=== PATIENT | male | born 1960 | race Caucasian/White ===

== ENCOUNTER 2017-12-07 10:19 | Inpatient (IN) | payer BC ==
[2017-12-07] MEDS: PERCOCET 5MG/325MG TAB PO (11:56)
[2017-12-07 13:29] LABS: HEMOGLOBIN 13.3 g/dl (13.5-17.5); MEAN CORPUSCULAR HGB CONC 35.9 g/dl (32.0-36.5); MEAN CORPUSCULAR VOLUME 86.2 fl (80.0-96.0); PLATELET COUNT, AUTOMATED 166 10^3/uL (150-450); RED BLOOD COUNT 4.29 10^6/uL (4.30-6.10); RED CELL DISTRIBUTION WIDTH 13.2 % (11.5-14.5); WHITE BLOOD COUNT 8.1 10^3/uL (4.0-10.0)
[2017-12-07 13:42] LABS: PROTHROMBIN TIME 13.3 SECONDS (12.4-14.5)
[2017-12-07 13:43] LABS: PARTIAL THROMBOPLASTIN TIME 27.1 SECONDS (26.8-37.9)
[2017-12-07 13:56] LABS: ANION GAP 6 MEQ/L (8-16); BLOOD UREA NITROGEN 11 MG/DL (7-18); CALCIUM LEVEL 9.1 MG/DL (8.5-10.1); CARBON DIOXIDE LEVEL 30 MEQ/L (21-32); CHLORIDE LEVEL 97 MEQ/L (98-107); CREATININE FOR GFR 0.59 MG/DL (0.70-1.30); GLOMERULAR FILTRATION RATE > 60.0 (>56); GLUCOSE, FASTING 104 MG/DL (70-100); POTASSIUM SERUM 4.3 MEQ/L (3.5-5.1); SODIUM LEVEL 133 MEQ/L (136-145)
[2017-12-07] MEDS: MORPHINE 4 MG/ML 1ML VIAL/SYRINGE (J2270) IV ×3 (15:00→21:21)
[2017-12-07] MEDS ORDERED: ACETAMINOPHEN TAB 650MG DOSE (2X325MG) PO (15:00)
[2017-12-07] MEDS: AZITHROMYCIN INJ 500 MG, VIAL MATE ADAPTER 1 EACH in D5W 250 ML IV (18:35)
[2017-12-07] MEDS ORDERED: NALOXONE INJ 0.4 MG/1 ML VIAL (J2310) IV (19:15)
[2017-12-07] MEDS ORDERED: diphenhydrAMINE INJ 50MG/ML VIAL (J1200) IV (19:15)
[2017-12-07] MEDS ORDERED: NALBUPHINE HCL 10 MG/ML AMP (J2300) IV (19:15)
[2017-12-07] MEDS ORDERED: EPIDURAL/PCA KEYS XX (19:15)
[2017-12-07] MEDS: ONDANSETRON 4MG/2ML VIAL (J2405) IV (19:59)
[2017-12-07] MEDS: cefTRIAXone SOD 2 GM in D5W MINI-BAG PLUS 50 ML IV (20:32)
[2017-12-07] MEDS: DOCUSATE SODIUM 100 MG CAP PO (20:32)
[2017-12-07] MEDS: NS 1,000 ML IV (20:33)
[2017-12-07] MEDS: MORPHINE 1MG/ML IN 0.9% NACL 100ML IV BAG IV (21:35)
[2017-12-07] MEDS: IPRATROPIUM 0.5MG/ALBUTEROL 2.5MG INH SOL UD 3ML (DUONEB)(J7620) NEB (21:40)
[2017-12-07] MEDS: NICOTINE 21MG/24HR 1 EA TRANSDERMAL TD (21:55)
[2017-12-08] MEDS: IPRATROPIUM 0.5MG/ALBUTEROL 2.5MG INH SOL UD 3ML (DUONEB)(J7620) NEB ×2 (03:06→23:34)
[2017-12-08] MEDS: ONDANSETRON 4MG/2ML VIAL (J2405) IV ×3 (03:51→22:00)
[2017-12-08 04:29] LABS: BASO % 0.2 % (0.0-1.0); EOS # 0.1 10^3/uL (0.0-0.50); EOS % 0.8 % (0.0-3.0); HEMATOCRIT 38.1 % (42.0-52.0); HEMOGLOBIN 13.4 g/dl (13.5-17.5); IMMATURE GRANULOCYTE % 0.2 % (0-3.0); LYMPH # 0.6 10^3/uL (1.5-4.5); LYMPH % 6.2 % (24.0-44.0); MEAN CORPUSCULAR HEMOGLOBIN 30.8 pg (27.0-33.0); MEAN CORPUSCULAR HGB CONC 35.2 g/dl (32.0-36.5); MEAN CORPUSCULAR VOLUME 87.6 fl (80.0-96.0); MONO # 0.9 10^3/uL (0.0-0.8); MONO % 9.1 % (0.0-5.0); NEUTROPHILS # 8.6 10^3/uL (1.8-7.7); NEUTROPHILS % 83.5 % (36.0-66.0); PLATELET COUNT, AUTOMATED 191 10^3/uL (150-450); RED BLOOD COUNT 4.35 10^6/uL (4.30-6.10); RED CELL DISTRIBUTION WIDTH 13.4 % (11.5-14.5); WHITE BLOOD COUNT 10.2 10^3/uL (4.0-10.0)
[2017-12-08 05:00] LABS: ANION GAP 7 MEQ/L (8-16); BLOOD UREA NITROGEN 13 MG/DL (7-18); CALCIUM LEVEL 8.5 MG/DL (8.5-10.1); CARBON DIOXIDE LEVEL 30 MEQ/L (21-32); CHLORIDE LEVEL 96 MEQ/L (98-107); CREATININE FOR GFR 0.57 MG/DL (0.70-1.30); GLOMERULAR FILTRATION RATE > 60.0 (>56); GLUCOSE, FASTING 153 MG/DL (70-100); POTASSIUM SERUM 3.6 MEQ/L (3.5-5.1); SODIUM LEVEL 133 MEQ/L (136-145)
[2017-12-08] MEDS: PIPERACILLIN/TAZOBACTAM SOD 3.375 GM in D5W MINI-BAG PLUS 50 ML IV ×3 (06:23→18:30)
[2017-12-08 06:32] LABS: ABG BASE EXCESS 0.3 (-2.0-2.0); ABG HCO3 26.2 MEQ/L (22.0-26.0); ABG O2 SATURATION 92.1 % (95.0-99.0); ABG PARTIAL PRESSURE CO2 47.2 mmHg (35.0-45.0); ABG PARTIAL PRESSURE O2 66.1 mmHg (75.0-100.0); ABG STANDARD HCO3 24.6 MEQ/L (22.0-26.0); ABG TOTAL CO2 27.7 MEQ/L (22.0-29.0); ABG pH (ARTERIAL) 7.363 UNITS (7.350-7.450)
[2017-12-08] MEDS ORDERED: MORPHINE 4 MG/ML 1ML VIAL/SYRINGE (J2270) IV (08:15)
[2017-12-08] MEDS: ASPIRIN 81 MG ENTERIC TAB PO (09:33)
[2017-12-08] MEDS: DOCUSATE SODIUM 100 MG CAP PO ×2 (09:33→21:03)
[2017-12-08] MEDS: hydroCHLOROthiazide 12.5 MG CAPSULE PO (09:34)
[2017-12-08] MEDS: ATORVASTATIN 20 MG TAB PO (09:34)
[2017-12-08] MEDS: LISINOPRIL 40 MG TAB PO (09:34)
[2017-12-08] MEDS: METOPROLOL SUCC (TopROL XL) 100MG *XL* TAB PO (09:34)
[2017-12-08] MEDS: CLOPIDOGREL 75 MG TAB PO (09:34)
[2017-12-08] MEDS: OMEPRAZOLE 20 MG CAP PO (09:34)
[2017-12-08] MEDS: NICOTINE 21MG/24HR 1 EA TRANSDERMAL TD (09:35)
[2017-12-08] MEDS ORDERED: SODIUM CHLORIDE 0.9% 1000 ML IV (11:45)
[2017-12-08] MEDS ORDERED: NALOXONE INJ 0.4 MG/1 ML VIAL (J2310) IV (12:00)
[2017-12-08] MEDS ORDERED: EPIDURAL/PCA KEYS XX (12:00)
[2017-12-08] MEDS ORDERED: diphenhydrAMINE INJ 50MG/ML VIAL (J1200) IV (12:00)
[2017-12-08] MEDS ORDERED: NALBUPHINE HCL 10 MG/ML AMP (J2300) IV (12:00)
[2017-12-08] MEDS: NS 1,000 ML IV (12:15)
[2017-12-08] MEDS: CALCIUM CARBONATE 500 MG CHEW U/D PO (21:03)
[2017-12-08] MEDS: MORPHINE 1MG/ML IN 0.9% NACL 100ML IV BAG IV (23:09)
[2017-12-09] MEDS: PIPERACILLIN/TAZOBACTAM SOD 3.375 GM in D5W MINI-BAG PLUS 50 ML IV ×4 (01:23→18:42)
[2017-12-09 05:42] LABS: BASO % 0.3 % (0.0-1.0); EOS # 0.2 10^3/uL (0.0-0.50); EOS % 3.5 % (0.0-3.0); HEMATOCRIT 34.7 % (42.0-52.0); HEMOGLOBIN 11.9 g/dl (13.5-17.5); IMMATURE GRANULOCYTE % 0.5 % (0-3.0); LYMPH # 1.3 10^3/uL (1.5-4.5); LYMPH % 21.1 % (24.0-44.0); MEAN CORPUSCULAR HEMOGLOBIN 30.5 pg (27.0-33.0); MEAN CORPUSCULAR HGB CONC 34.3 g/dl (32.0-36.5); MONO # 0.7 10^3/uL (0.0-0.8); NEUTROPHILS % 63.6 % (36.0-66.0); PLATELET COUNT, AUTOMATED 165 10^3/uL (150-450); RED CELL DISTRIBUTION WIDTH 13.4 % (11.5-14.5); WHITE BLOOD COUNT 6.3 10^3/uL (4.0-10.0)
[2017-12-09 06:04] LABS: ANION GAP 4 MEQ/L (8-16); BLOOD UREA NITROGEN 16 MG/DL (7-18); CALCIUM LEVEL 9.1 MG/DL (8.5-10.1); CARBON DIOXIDE LEVEL 36 MEQ/L (21-32); CHLORIDE LEVEL 96 MEQ/L (98-107); CREATININE FOR GFR 0.53 MG/DL (0.70-1.30); GLOMERULAR FILTRATION RATE > 60.0 (>56); GLUCOSE, FASTING 127 MG/DL (70-100); POTASSIUM SERUM 3.7 MEQ/L (3.5-5.1); SODIUM LEVEL 136 MEQ/L (136-145)
[2017-12-09] MEDS: ONDANSETRON 4MG/2ML VIAL (J2405) IV ×2 (06:51→17:29)
[2017-12-09] MEDS: ASPIRIN 81 MG ENTERIC TAB PO (08:42)
[2017-12-09] MEDS: ATORVASTATIN 20 MG TAB PO (08:42)
[2017-12-09] MEDS: LISINOPRIL 40 MG TAB PO (08:43)
[2017-12-09] MEDS: hydroCHLOROthiazide 12.5 MG CAPSULE PO (08:43)
[2017-12-09] MEDS: OMEPRAZOLE 20 MG CAP PO (08:44)
[2017-12-09] MEDS: CLOPIDOGREL 75 MG TAB PO (08:44)
[2017-12-09] MEDS: DOCUSATE SODIUM 100 MG CAP PO ×2 (08:44→20:05)
[2017-12-09] MEDS: METOPROLOL SUCC (TopROL XL) 100MG *XL* TAB PO (08:44)
[2017-12-09] MEDS: NICOTINE 21MG/24HR 1 EA TRANSDERMAL TD (08:45)
[2017-12-09] MEDS ORDERED: FENTANYL REMOVAL DOCUMENTATION MISC XX (11:00)
[2017-12-09] MEDS ORDERED: LEVALBUTEROL 1.25 MG/0.5 ML CONCENTRATE NEB NEB (11:00)
[2017-12-09] MEDS: MOM 30ML SUSPENSION UDC PO (11:56)
[2017-12-09] MEDS: KETOROLAC 30 MG/ML VIAL (J1885) IV ×3 (11:56→23:25)
[2017-12-09] MEDS: BISACODYL 10 MG SUPP PR (11:57)
[2017-12-09] MEDS: SENOKOT S TAB PO (11:57)
[2017-12-09] MEDS: fentaNYL 25 MCG/HR PATCH TOP (14:05)
[2017-12-09] MEDS: LEVALBUTEROL 1.25 MG/0.5 ML CONCENTRATE NEB NEB ×2 (14:14→20:53)
[2017-12-09] MEDS: FLEET OIL RETENTION ENEMA PR (17:06)
[2017-12-09] MEDS: MIRALAX *UNIT DOSE* 17GM PACKET PO (18:41)
[2017-12-10] MEDS: PIPERACILLIN/TAZOBACTAM SOD 3.375 GM in D5W MINI-BAG PLUS 50 ML IV ×4 (01:09→18:33)
[2017-12-10] MEDS: LEVALBUTEROL 1.25 MG/0.5 ML CONCENTRATE NEB NEB ×4 (02:07→20:35)
[2017-12-10] MEDS: KETOROLAC 30 MG/ML VIAL (J1885) IV ×4 (05:01→22:48)
[2017-12-10 05:53] LABS: HEMATOCRIT 31.3 % (42.0-52.0); HEMOGLOBIN 10.9 g/dl (13.5-17.5); MEAN CORPUSCULAR VOLUME 89.2 fl (80.0-96.0); RED BLOOD COUNT 3.51 10^6/uL (4.30-6.10); WHITE BLOOD COUNT 5.1 10^3/uL (4.0-10.0)
[2017-12-10 05:54] LABS: BASO % 0.2 % (0.0-1.0); EOS # 0.2 10^3/uL (0.0-0.50); EOS % 4.1 % (0.0-3.0); IMMATURE GRANULOCYTE % 0.4 % (0-3.0); LYMPH # 1.4 10^3/uL (1.5-4.5); LYMPH % 26.6 % (24.0-44.0); MEAN CORPUSCULAR HEMOGLOBIN 31.1 pg (27.0-33.0); MEAN CORPUSCULAR HGB CONC 34.8 g/dl (32.0-36.5); MONO # 0.5 10^3/uL (0.0-0.8); MONO % 9.8 % (0.0-5.0); NEUTROPHILS % 58.9 % (36.0-66.0); PLATELET COUNT, AUTOMATED 168 10^3/uL (150-450); RED CELL DISTRIBUTION WIDTH 13.4 % (11.5-14.5)
[2017-12-10 06:09] LABS: ANION GAP 4 MEQ/L (8-16); BLOOD UREA NITROGEN 20 MG/DL (7-18); CALCIUM LEVEL 8.9 MG/DL (8.5-10.1); CARBON DIOXIDE LEVEL 36 MEQ/L (21-32); CHLORIDE LEVEL 97 MEQ/L (98-107); CREATININE FOR GFR 0.51 MG/DL (0.70-1.30); GLOMERULAR FILTRATION RATE > 60.0 (>56); GLUCOSE, FASTING 118 MG/DL (70-100); POTASSIUM SERUM 3.4 MEQ/L (3.5-5.1); SODIUM LEVEL 137 MEQ/L (136-145)
[2017-12-10] MEDS: NICOTINE 21MG/24HR 1 EA TRANSDERMAL TD (08:43)
[2017-12-10] MEDS: DOCUSATE SODIUM 100 MG CAP PO ×2 (08:43→21:06)
[2017-12-10] MEDS: MOM 30ML SUSPENSION UDC PO (08:43)
[2017-12-10] MEDS: ATORVASTATIN 20 MG TAB PO (08:43)
[2017-12-10] MEDS: SENOKOT S TAB PO ×3 (08:44→21:05)
[2017-12-10] MEDS: CLOPIDOGREL 75 MG TAB PO (08:44)
[2017-12-10] MEDS: METOPROLOL SUCC (TopROL XL) 100MG *XL* TAB PO (08:44)
[2017-12-10] MEDS: LISINOPRIL 40 MG TAB PO (08:45)
[2017-12-10] MEDS: OMEPRAZOLE 20 MG CAP PO (08:45)
[2017-12-10] MEDS: hydroCHLOROthiazide 12.5 MG CAPSULE PO (08:45)
[2017-12-10] MEDS: ASPIRIN 81 MG ENTERIC TAB PO (08:46)
[2017-12-10] MEDS: PERCOCET 5MG/325MG TAB PO ×3 (08:46→21:06)
[2017-12-10] MEDS: MIRALAX *UNIT DOSE* 17GM PACKET PO ×2 (10:58→21:07)
[2017-12-10] MEDS: METHYLNALTREXONE BROMIDE 12 MG/0.6 ML VIAL (RELISTOR) SC (11:48)
[2017-12-10] MEDS: MAGNESIUM CITRATE 300 ML BTL PO (13:20)
[2017-12-10 13:49] LABS: AMORPHOUS SEDIMENT SMALL (NEGATIVE); APPEARANCE, URINE TURBID (CLEAR); BACTERIA, URINE AUTO NEGATIVE (NEGATIVE); BILIRUBIN, URINE AUTO NEGATIVE (NEGATIVE); BLOOD, URINE BLOOD NEGATIVE (NEGATIVE); COLOR, URINE AMBER (YELLOW); GLUCOSE, URINE (UA) AUTO NEGATIVE (NEGATIVE); KETONE, URINE AUTO NEGATIVE (NEGATIVE); LEUKOCYTE ESTERASE, URINE AUTO NEGATIVE (NEGATIVE); MUCUS, URINE SMALL (NEGATIVE); NITRITE, URINE AUTO NEGATIVE (NEGATIVE); PROTEIN, URINE AUTO NEGATIVE (NEGATIVE); RBC, URINE AUTO 10 /HPF (0-3); SPECIFIC GRAVITY URINE AUTO 1.029 (1.002-1.035); SQUAMOUS EPITHELIAL CELL UR AU 0 /HPF (0-6); UROBILINOGEN, URINE AUTO 0.2 mg/dL (0.0-2.0); WBC, URINE AUTO 0 /HPF (0-3)
[2017-12-10] MEDS: POTASSIUM CHLORIDE 10 MEQ SR TABLET PO (14:39)
[2017-12-10] MEDS: HEPARIN SOD (PORCINE) 5000 UNITS/ML VIAL SQ (21:07)
[2017-12-11] MEDS: PIPERACILLIN/TAZOBACTAM SOD 3.375 GM in D5W MINI-BAG PLUS 50 ML IV ×3 (00:45→13:19)
[2017-12-11] MEDS: LEVALBUTEROL 1.25 MG/0.5 ML CONCENTRATE NEB NEB ×3 (02:00→16:06)
[2017-12-11] MEDS: KETOROLAC 30 MG/ML VIAL (J1885) IV ×3 (04:21→17:14)
[2017-12-11 05:47] LABS: BASO % 0.2 % (0.0-1.0); EOS # 0.2 10^3/uL (0.0-0.50); EOS % 5.4 % (0.0-3.0); HEMATOCRIT 33.3 % (42.0-52.0); HEMOGLOBIN 11.5 g/dl (13.5-17.5); IMMATURE GRANULOCYTE % 0.4 % (0-3.0); LYMPH # 1.3 10^3/uL (1.5-4.5); MEAN CORPUSCULAR HEMOGLOBIN 31.1 pg (27.0-33.0); MEAN CORPUSCULAR HGB CONC 34.5 g/dl (32.0-36.5); MONO # 0.5 10^3/uL (0.0-0.8); MONO % 10.1 % (0.0-5.0); NEUTROPHILS # 2.4 10^3/uL (1.8-7.7); NEUTROPHILS % 53.9 % (36.0-66.0); PLATELET COUNT, AUTOMATED 198 10^3/uL (150-450); RED CELL DISTRIBUTION WIDTH 13.3 % (11.5-14.5); WHITE BLOOD COUNT 4.5 10^3/uL (4.0-10.0)
[2017-12-11 06:03] LABS: ANION GAP 5 MEQ/L (8-16); BLOOD UREA NITROGEN 18 MG/DL (7-18); CALCIUM LEVEL 8.7 MG/DL (8.5-10.1); CARBON DIOXIDE LEVEL 33 MEQ/L (21-32); CHLORIDE LEVEL 100 MEQ/L (98-107); CREATININE FOR GFR 0.67 MG/DL (0.70-1.30); GLOMERULAR FILTRATION RATE > 60.0 (>56); GLUCOSE, FASTING 109 MG/DL (70-100); MAGNESIUM LEVEL 2.2 MG/DL (1.8-2.4); SODIUM LEVEL 138 MEQ/L (136-145)
[2017-12-11] MEDS: PERCOCET 5MG/325MG TAB PO ×3 (06:36→17:55)
[2017-12-11] MEDS: NICOTINE 21MG/24HR 1 EA TRANSDERMAL TD (09:24)
[2017-12-11] MEDS: MIRALAX *UNIT DOSE* 17GM PACKET PO (09:24)
[2017-12-11] MEDS: DOCUSATE SODIUM 100 MG CAP PO (09:25)
[2017-12-11] MEDS: LISINOPRIL 40 MG TAB PO (09:25)
[2017-12-11] MEDS: HEPARIN SOD (PORCINE) 5000 UNITS/ML VIAL SQ (09:25)
[2017-12-11] MEDS: ASPIRIN 81 MG ENTERIC TAB PO (09:25)
[2017-12-11] MEDS: SENOKOT S TAB PO (09:25)
[2017-12-11] MEDS: CLOPIDOGREL 75 MG TAB PO (09:26)
[2017-12-11] MEDS: ATORVASTATIN 20 MG TAB PO (09:26)
[2017-12-11] MEDS: OMEPRAZOLE 20 MG CAP PO (09:26)
[2017-12-11] MEDS: METOPROLOL SUCC (TopROL XL) 100MG *XL* TAB PO (09:26)
[2017-12-11] MEDS: hydroCHLOROthiazide 12.5 MG CAPSULE PO (09:27)
[2017-12-11 14:13] LABS: BODY FLUID CULTURE Not Indicated (.); LEGIONELLA ANTIGEN URINE Negative (Negative); ORGANISM ID Not indicated. (.); SPECIMEN SOURCE Urine (.); URINE STREP PNEUMONIAE ANTIGEN Negative (Negative)
[2017-12-11] MEDS ORDERED: fentaNYL 25 MCG/HR PATCH TOP (15:30)
[2017-12-11] MEDS ORDERED: FENTANYL REMOVAL DOCUMENTATION MISC XX (15:30)
[2017-12-11] MEDS: fentaNYL 25 MCG/HR PATCH TOP (17:32)
[2017-12-11] MEDS: FENTANYL REMOVAL DOCUMENTATION MISC XX (17:33)
== END 2017-12-11 18:00 | disposition home or self-care (01) | DRG 135 ==
LOC: M PCU 12-09 14:12 → M ED 10:19 → M ED INP 14:48 → M PCU 18:13
DX: S22.42XA Multiple fractures of ribs, left side, initial encounter for closed fracture (principal); J18.9 Pneumonia, unspecified organism; S27.1XXA Traumatic hemothorax, initial encounter; I10 Essential (primary) hypertension; F17.210 Nicotine dependence, cigarettes, uncomplicated; K21.9 Gastro-esophageal reflux disease without esophagitis; K59.03 Drug induced constipation; E78.5 Hyperlipidemia, unspecified; I25.10 Atherosclerotic heart disease of native coronary artery without angina pectoris; Z95.9 Presence of cardiac and vascular implant and graft, unspecified; I25.2 Old myocardial infarction; Z79.82 Long term (current) use of aspirin; Z79.899 Other long term (current) drug therapy; Z79.02 Long term (current) use of antithrombotics/antiplatelets; R09.02 Hypoxemia; V29.3XXA Motorcycle rider (driver) (passenger) injured in unspecified nontraffic accident, initial encounter; Y92.014 Private driveway to single-family (private) house as the place of occurrence of the external cause; Y93.89 Activity, other specified

== ENCOUNTER → 2017-12-17 | Outpatient (CLI) | payer BC | LOC: M SMT 10:23 | DX: S22.42XA Multiple fractures of ribs, left side, initial encounter for closed fracture (principal); J90 Pleural effusion, not elsewhere classified; X58.XXXA Exposure to other specified factors, initial encounter; Y92.9 Unspecified place or not applicable | CPT/HCPCS: 71046 ==

== ENCOUNTER → 2017-12-25 | Outpatient (CLI) | payer BC ==
[2017-12-25 15:23] LABS: PH BODY FLUID 7.554 UNITS (NOT ESTABLISHED); SOURCE, BODY FLUID pH PLEURAL
[2017-12-25 15:36] LABS: BF MONONUCLEAR CELL % 64.2 % (0-0); BF POLYMORPHONUCLEAR CELL % 35.8 % (0-0); RBC BODY FLUID 183 10^3/uL (<2); WBC BODY FLUID 1946 /uL (0-10)
[2017-12-25 15:37] LABS: APPEARANCE, BODY FLUID TURBID (CLEAR); BF DIFF IF INDICATED? YES (NO); PLEURAL FL COLOR RED (COLORLESS); SOURCE, BODY FLUID PLEURAL
[2017-12-25 16:24] LABS: AMYLASE, BODY FLUID 25 U/L (NOT ESTABLISHED); LDH, BODY FLUID 258 U/L (NOT ESTABLISHED); SOURCE, BODY FLUID AMYLASE PLEURAL; SOURCE, BODY FLUID GLUCOSE PLEURAL; SOURCE, BODY FLUID LDH PLEURAL; SOURCE, BODY FLUID TOT PROTEIN PLEURAL; TOTAL PROTEIN, BODY FLUID 4.1 G/DL (NOT ESTABLISHED)
== END ==
LOC: M RADPRO 12:31
DX: S22.42XA Multiple fractures of ribs, left side, initial encounter for closed fracture (principal); Y92.89 Other specified places as the place of occurrence of the external cause; Y93.89 Activity, other specified; Y99.8 Other external cause status; X58.XXXA Exposure to other specified factors, initial encounter
CPT/HCPCS: 32555

== ENCOUNTER → 2017-12-31 | Outpatient (CLI) | payer BC | LOC: M SMT 11:37 | DX: R91.8 Other nonspecific abnormal finding of lung field (principal); J90 Pleural effusion, not elsewhere classified | CPT/HCPCS: 71046 ==

== ENCOUNTER → 2018-01-21 | Outpatient (CLI) | payer BC | LOC: M SMT 10:47 | DX: R91.8 Other nonspecific abnormal finding of lung field (principal) | CPT/HCPCS: 71046 ==